=== PATIENT | female | born 1985 | race Caucasian/White ===

== ENCOUNTER 2017-02-27 16:28 | Emergency (ER) | payer OTHER ==
[2017-02-27 16:42] VITALS: BP 137/82; PULSE 90; RESP 18; TEMP 98.2
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
== END 2017-02-27 18:34 | disposition home or self-care (01) ==
LOC: EC 16:28
DX: S00.12XA Contusion of left eyelid and periocular area, initial encounter (principal); S60.211A Contusion of right wrist, initial encounter; S60.212A Contusion of left wrist, initial encounter; S70.02XA Contusion of left hip, initial encounter; H11.32 Conjunctival hemorrhage, left eye; Z88.5 Allergy status to narcotic agent; Y04.0XXA Assault by unarmed brawl or fight, initial encounter
CPT/HCPCS: 70450; 70486; 72125; 99284

== ENCOUNTER → 2017-04-19 | Outpatient (CLI) | payer OTHER ==
--- NOTE | 2017-04-19 14:58 | XR ---
EXAMINATION TYPE: XR lumbosacral spine min 4V DATE OF EXAM: 04/19/2017 CLINICAL HISTORY: Chronic low back pain, history of DDD. TECHNIQUE: Frontal, lateral, and oblique images of the lumbar spine are obtained. COMPARISON: None FINDINGS: There are 5 lumbar type vertebral bodies identified. Spina bifida defect S1 level is seen The lumbar spine shows satisfactory alignment without evidence of acute fracture or dislocation. Vert ebral body heights and disk space heights are within normal limits. No significant spurring is presen t. The oblique images appear within normal limits. The overlying soft tissue appears unremarkable. IMPRESSION: Spina bifida defect S1 level otherwise unremarkable study.
== END | disposition home or self-care (01) ==
LOC: RADXRMAIN 14:38
PROVIDERS: ATTEND Family Medicine
DX: Q05.8 Sacral spina bifida without hydrocephalus (principal); M54.5 Low back pain; G89.29 Other chronic pain
CPT/HCPCS: 72110

== ENCOUNTER 2018-02-08 18:41 | Emergency (ER) | payer OTHER ==
[2018-02-08 19:09] VITALS: BP 123/81; PULSE 88; RESP 16; TEMP 98.2
[2018-02-08] MEDS ORDERED: ACETAMINOPHEN TAB 500 MG TAB PO STA (19:56)
[2018-02-08] MEDS ORDERED: DIPH,PERTUS(ACELL)TETVAC-LF 0.5 ML VIAL IM ONE (19:56)
[2018-02-08] MEDS ORDERED: LIDOCAINE 1% INJ 10MG/ML (20 ML MDV) SQ ONE (19:56)
[2018-02-08] MEDS ORDERED: AMOXIC-POT CLAV 875-125MG 1 EACH TAB PO STA (19:58)
--- NOTE | 2018-02-08 20:02 | ED ---
Wound/Laceration HPI - General Chief Complaint: Wound/Laceration Stated Complaint: Dog bite Time Seen by Provider: 02/08/18 19:41 Source: patient, RN notes reviewed Mode of arrival: ambulatory Limitations: no limitations - History of Present Illness Initial Comments: This is a 33-year-old female who presents to the emergency department with chief complaint of dog bite. Patient states that at 6:30 this evening she was playing with her dog. She states that it is an [place] bulldog. She states that while playing, the dog jumped up and accidentally bit her in the left armpit instead of latching onto the toy. She states that dog is currently up-to -date with all vaccinations. Denies any other injuries or trauma. States she is unsure if she is up-to-date with her tetanus vaccination. Denies fevers or chills, chest pain or shortness breath, abdominal pain, nausea or vomiting, numbness or tingling. - Related Data Previous Rx's Medication Instructions Recorded Amoxicillin/Potassium Clav 1 tab PO Q12HR #14 tab 02/08/18 [Augmentin 875-125 Tablet] Ibuprofen 600 mg PO Q6HR #20 tablet 02/08/18 Allergies Allergy/AdvReac Type Severity Reaction Status Date / Time codeine Allergy Rash/Hives Verified 02/08/18 19:23 Review of Systems ROS Statement: Those systems with pertinent positive or pertinent negative responses have been documented in the HPI. ROS Other: All systems not noted in ROS Statement are negative. Past Medical History Additional Past Medical History / Comment(s): anxiety History of Any Multi-Drug Resistant Organisms: None Reported Past Surgical History: Tubal Ligation Past Psychological History: Anxiety Smoking Status: Never smoker Past Alcohol Use History: Occasional Past Drug Use History: Marijuana General Exam - General Exam Comments Initial Comments: General: Awake and alert, well-developed; in no apparent distress. HEENT: Head atraumatic, normocephalic. Pupils are equal, round and reactive to light. Extraocular movements intact. Oropharynx moist without erythema or exudate. Neck: Supple. Normal ROM. Cardiovascular: Regular rate and rhythm. No murmurs, rubs or gallops. Chest symmetrical. Respiratory: Lungs clear to auscultation bilaterally. No wheezes, rales or rhonchi. Normal respiratory effort with no use of accessory muscles. Musculoskeletal: Normal ROM, no tenderness bilateral upper and lower extremities. Ambulating normally. Skin: Approximately 1 cm x 1 cm superficial laceration with poorly approximated edges to the left lateral axilla. Bleeding is controlled. Neurological: Alert and oriented x3. CN II-XII grossly intact. Speech is fluent and answers are appropriate. No focal neuro deficits. Psychiatric: Normal mood and affect. No overt signs of depression or anxiety noted. Limitations: no limitations Course Vital Signs 02/08/18 19:06 Temperature 98.2 F Pulse Rate 88 Respiratory 16 Rate Blood Pressure 123/81 O2 Sat by Pulse 100 Oximetry Procedures - Laceration Laceration #1 Consent Obtained: verbal consent Indication: laceration Site: upper extremity (left axilla) Size (cm): 1 Description: linear Depth: simple, single layer Anesthetic Used: lidocaine 1% Anesthesia Technique: local infiltration Amount (mls): 3 Pre-repair: wound explored, irrigated extensively Type of Sutures: nylon Size of Sutures: 4-0 Number of Sutures: 1 Technique: simple, interrupted Patient Tolerated Procedure: well, no complications Medical Decision Making - Medical Decision Making This is a 33-year-old female who presents to the emergency department with chief complaint of dog bite. Patient was accidentally bit by her dog in the left axilla. Dog is up-to-date with all vaccinations. Patient was given booster for tetanus here in the emergency department. She was given first dose of Augmentin. She sustained an approximately 1 cm x 1 cm laceration with poorly approximated edges to the left lateral axilla. No other injuries or trauma. Wound was thoroughly cleansed, irrigated and one loose suture was placed. Patient tolerated well without complication. Recommended removal of suture in 10-14 days. Patient will be started on a course of Augmentin. She will be provided with a prescription for Motrin. Return parameters were discussed. Patient's vital signs are stable and she is in no acute distress. She will be discharged home at this time. All questions were answered. - Radiology Data Radiology results: report reviewed, image reviewed X-ray left shoulder impression: No foreign body seen. Disposition Clinical Impression: Dog bite Disposition: HOME SELF-CARE Condition: Good Instructions: Animal Bite (ED) Additional Instructions: Please take medications as prescribed. Please follow up with primary care provider within 1-2 days. Return to emergency department if symptoms should worsen or any concerns arise. Prescriptions: Amoxicillin/Potassium Clav [Augmentin 875-125 Tablet] 1 tab PO Q12HR #14 tab Ibuprofen 600 mg PO Q6HR #20 tablet Is patient prescribed a controlled substance at d/c from ED?: No Referrals: Dayana Rider MD [Primary Care Provider] - 1-2 days Time of Disposition: 20:33
--- NOTE | 2018-02-08 20:22 | XR ---
EXAMINATION TYPE: XR shoulder limited LT DATE OF EXAM: 02/08/2018 COMPARISON: NONE HISTORY: Dog bite. Possible foreign body. TECHNIQUE: 2 views FINDINGS: I see no fracture nor dislocation. There is a trimeter shaped density over the lower axilla that apparently is the clothing. The shoulder joint appears intact. IMPRESSION: No foreign body seen.
== END 2018-02-08 20:46 | disposition home or self-care (01) ==
LOC: EC 18:41
DX: S41.112A Laceration without foreign body of left upper arm, initial encounter (principal); Z23 Encounter for immunization; Z88.5 Allergy status to narcotic agent; W54.0XXA Bitten by dog, initial encounter; Y93.89 Activity, other specified
CPT/HCPCS: 73020; 90715; 99283; 12001; 90471; J2001

== ENCOUNTER 2019-10-27 16:46 | Emergency (ER) | payer OTHER ==
[2019-10-27 16:52] VITALS: BP 118/76; PULSE 89; RESP 18; TEMP 98
[2019-10-27] MEDS ORDERED: LIDOCAINE 1% INJ 10MG/ML (20 ML MDV) SQ ONE (17:14)
--- NOTE | 2019-10-27 17:43 | ED ---
Skin/Abscess/FB HPI - General Chief complaint: Skin/Abscess/Foreign Body Stated complaint: Abscess Time Seen by Provider: 10/27/19 16:55 Source: patient Mode of arrival: ambulatory Limitations: no limitations - History of Present Illness Initial comments: Patient is a 34-year-old female presenting to emergency Department with complaints of an abscess on her right inner thigh 3 days. Patient states she's had these before but this one is becoming painful and red and she is concerned is getting infected. Patient denies any fever, chills, nausea, vomiting. She has no other complaints at this time. Upon arrival to the ER her vitals are stable, afebrile. - Related Data Previous Rx's Medication Instructions Recorded Amoxicillin/Potassium Clav 1 tab PO Q12HR #14 tab 02/08/18 [Augmentin 875-125 Tablet] Ibuprofen 600 mg PO Q6HR #20 tablet 02/08/18 Cephalexin [Keflex] 500 mg PO Q6HR 5 Days #20 cap 10/27/19 Allergies Allergy/AdvReac Type Severity Reaction Status Date / Time codeine Allergy Rash/Hives Verified 10/27/19 16:52 Review of Systems ROS Statement: Those systems with pertinent positive or pertinent negative responses have been documented in the HPI. ROS Other: All systems not noted in ROS Statement are negative. Past Medical History Past Medical History: No Reported History Additional Past Medical History / Comment(s): anxiety History of Any Multi-Drug Resistant Organisms: None Reported Past Surgical History: Tubal Ligation Past Psychological History: Anxiety Smoking Status: Never smoker Past Alcohol Use History: Occasional Past Drug Use History: Marijuana General Exam - General Exam Comments Initial Comments: GENERAL: Well-appearing, well-nourished and in no acute distress. HEAD: Atraumatic, normocephalic. EYES: Pupils equal round and reactive to light, extraocular movements intact, sclera anicteric, conjunctiva are normal. ENT: TMs normal, nares patent, oropharynx clear without exudates. Moist mucous membranes. NECK: Normal range of motion, supple without lymphadenopathy or JVD. LUNGS: Breath sounds clear to auscultation bilaterally and equal. No wheezes rales or rhonchi. HEART: Regular rate and rhythm without murmurs, rubs or gallops. ABDOMEN: Soft, nontender, normoactive bowel sounds. No guarding, no rebound. No masses appreciated. : Deferred EXTREMITIES: Normal range of motion, no pitting or edema. No clubbing or cyanosis. NEUROLOGICAL: Normal speech, normal gait. PSYCH: Normal mood, normal affect. SKIN: Warm, Dry, normal turgor. Patient has a small 2cm abscess to the right inner thigh with some surrounding erythema and pain with palpation. 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: Identity, Site, Procedure, Consent Site: right upper thigh Site Marked: Yes Site Verified With Patient/Guardian: Yes Final Confirmation: Procedure, Site, Confirmed w/Provider - Incision & Drainage Consent Obtained: verbal consent, written consent Indication: Abscess Site: lower extremity (Right inner, upper thigh) Size (cm): 2 Anesthetic Used: lidocaine 1% Amount (mLs): 2 I&D Cleaning Method: Alcohol Wipe Sterile Field Used?: Yes Scalpel Used: #11 Needle Aspiration Performed?: No Irrigation Performed?: Yes I&D Drainage Obtained: Pus, Blood Culture Obtained?: No Patient Tolerated Procedure: well Medical Decision Making - Medical Decision Making Patient is a 34-year-old female presenting with a small abscess of the right inner thigh 3 days. No fever or chills. I&D procedure was used to drain the abscess. Patient tolerated procedure well. Patient will be started on Keflex. She is in agreement with this plan of care. She is stable for discharge. Return parameters were discussed with the patient she verbalized understanding. Disposition Clinical Impression: Abscess of right leg, Cellulitis Disposition: HOME SELF-CARE Condition: Stable Instructions (If sedation given, give patient instructions): Abscess Incision and Drainage (ED) Additional Instructions: Please return to the Emergency Department if symptoms worsen or any other concerns. Keep area clean and dry. Apply warm compresses to the area. Take antibiotics as prescribed. Prescriptions: Cephalexin [Keflex] 500 mg PO Q6HR 5 Days #20 cap Is patient prescribed a controlled substance at d/c from ED?: No Referrals: None,Stated [Primary Care Provider] - 1-2 days
== END 2019-10-27 17:52 | disposition home or self-care (01) ==
LOC: EC 16:46
DX: L03.115 Cellulitis of right lower limb (principal); L02.415 Cutaneous abscess of right lower limb; Z88.5 Allergy status to narcotic agent
CPT/HCPCS: 10060; 99283; J2001

== ENCOUNTER 2020-04-12 12:45 | Emergency (ER) | payer OTHER ==
[2020-04-12 13:06] VITALS: TEMP 98.5
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
--- NOTE | 2020-04-12 13:58 | XR ---
EXAMINATION TYPE: XR ankle complete LT DATE OF EXAM: 04/12/2020 COMPARISON: NONE HISTORY: Pain FINDINGS: Three views of the ankle demonstrate the ankle mortise to be intact and symmetric. The joint spaces are preserved. The osseous structures are intact. Calcaneal spur noted. IMPRESSION: 1. No definite acute fracture or dislocation, if symptoms persist follow-up study in 7 to 10 days wou ld be suggested.
--- NOTE | 2020-04-12 13:59 | XR ---
EXAMINATION TYPE: XR wrist complete RT DATE OF EXAM: 04/12/2020 COMPARISON: NONE HISTORY: Pain TECHNIQUE: Four views submitted. FINDINGS: The osseous structures are intact. The joint spaces are preserved and there is no acute fracture or dislocation. IMPRESSION: 1. No definite acute fracture or dislocation if symptoms persist, follow-up study in 7 to 10 days wo uld be suggested
--- NOTE | 2020-04-12 14:12 | XR ---
EXAMINATION TYPE: XR foot complete LT DATE OF EXAM: 04/12/2020 CLINICAL HISTORY: Fall TECHNIQUE: Frontal, lateral, and oblique images of the left foot are obtained. COMPARISON: None FINDINGS: There is no acute fracture/dislocation evident in the left foot. The joint spaces appear within normal limits. The overlying soft tissue appears unremarkable. Normal osseous mineralization. IMPRESSION: There is no acute fracture or dislocation in the left foot.
[2020-04-12 14:54] VITALS: BP 127/91; PULSE 54; RESP 16
[2020-04-12] MEDS ORDERED: IBUPROFEN 600 MG TAB PO STA (14:54)
== END 2020-04-12 15:00 | disposition home or self-care (01) ==
LOC: EC 12:45
DX: S63.501A Unspecified sprain of right wrist, initial encounter (principal); S93.402A Sprain of unspecified ligament of left ankle, initial encounter; Z88.5 Allergy status to narcotic agent; W01.0XXA Fall on same level from slipping, tripping and stumbling without subsequent striking against object, initial encounter; Y92.009 Unspecified place in unspecified non-institutional (private) residence as the place of occurrence of the external cause
CPT/HCPCS: 99284

== ENCOUNTER 2021-02-27 12:42 | Emergency (ER) | payer OTHER ==
[2021-02-27] MEDS ORDERED: ONDANSETRON 4 MG/2 ML VIAL IVP STA (12:49)
[2021-02-27] MEDS ORDERED: SODIUM CHLORIDE 0.9% 1,000 ML IV STA (12:49)
[2021-02-27] MEDS ORDERED: KETOROLAC 15 MG/ML 1 ML VIAL IVP STA (12:50)
[2021-02-27 12:53] VITALS: RESP 18; TEMP 97.7
[2021-02-27 13:41] LABS: ALT 11 U/L (4-34); AST 30 U/L (14-36); African American GFR (CKD) >90 (>60 ml/min/1.73 sqM); Albumin 4.1 g/dL (3.5-5.0); Alkaline Phosphatase 89 U/L (38-126); Amylase 60 U/L (30-110); Anion Gap 10 mmol/L; Blood Urea Nitrogen 10 mg/dL (7-17); Calcium 9.3 mg/dL (8.4-10.2); Carbon Dioxide 21 mmol/L (22-30); Chloride 107 mmol/L (98-107); Glucose 124 mg/dL (74-99); Lipase 18 U/L (23-300); Non-African American GFR(CKD) >90 (>60 ml/min/1.73 sqM); Sodium 138 mmol/L (137-145); Total Bilirubin 0.6 mg/dL (0.2-1.3); Total Protein 7.2 g/dL (6.3-8.2)
[2021-02-27 13:47] LABS: Potassium 4.8 mmol/L (3.5-5.1)
--- NOTE | 2021-02-27 13:55 | XR ---
EXAMINATION TYPE: XR KUB DATE OF EXAM: 02/27/2021 1:51 PM CLINICAL HISTORY: Abdominal pain with nausea and vomiting TECHNIQUE: Two Upright KUB images of the abdomen are obtained. COMPARISON: None. FINDINGS: Gas is seen in nondistended stomach. Scattered gas is seen in non-distended small and large bowel loops. There is no visceromegaly, pneumoperitoneum, or abnormal calcification appreciated. The lung bases are clear and the osseous structures are intact. IMPRESSION: Overall nonobstructive bowel gas pattern.
[2021-02-27 14:31] VITALS: BP 114/68; PULSE 63
--- NOTE | 2021-02-27 15:20 | CT ---
EXAMINATION TYPE: CT abdomen pelvis wo con DATE OF EXAM: 02/27/2021 HISTORY: RLQ pain, nausea, vomiting CT DLP: 1565 mGycm. Automated Exposure Control for Dose Reduction was Utilized. TECHNIQUE: CT scan of the abdomen and pelvis is performed without oral or IV contrast. COMPARISON: Abdominal x-ray earlier today FINDINGS: Within the limitations of a non-contrast study, the following observations are made. LUNG BASES: No significant abnormality is appreciated. LIVER/GB: No significant abnormality is appreciated. PANCREAS: No significant abnormality is seen. SPLEEN: No significant abnormality is seen. ADRENALS: No significant abnormality is seen. KIDNEYS: No renal calculus or hydronephrosis is seen bilaterally. BOWEL: Small to moderate size hiatal hernia is present. Suboptimal evaluation of bowel without enteri c contrast. No suspicious small or large bowel dilatation. Normal appendix from the medial aspect of the cecum and right lower quadrant coronal image 45. GENITAL ORGANS: Anteverted uterus. Ovaries symmetric and within normal limits of size axial image 108 . LYMPH NODES: No greater than 1cm abdominal or pelvic lymph nodes are appreciated. OSSEOUS STRUCTURES: No significant abnormality is seen. OTHER: No significant additional abnormality is seen. IMPRESSION: No renal stones or hydronephrosis is seen bilaterally. No CT evidence for acute appendici tis. No bowel obstruction. No suspicious acute findings identified.
--- NOTE | 2021-02-27 15:25 | ED ---
Abdominal Pain HPI - General Source: patient, EMS, RN notes reviewed Mode of arrival: EMS Limitations: no limitations <Ghulam Cota - Last Filed: 02/27/21 15:22> <Rich Rojas - Last Filed: 02/27/21 15:43> - General Chief Complaint: Abdominal Pain Stated Complaint: abd pain Time Seen by Provider: 02/27/21 12:45 - History of Present Illness Initial Comments: Patient is a 36-year-old female that presents to emergency department via EMS complaining of abdominal pain since this morning. She notes that the pain is mostly in her right lower quadrant. She notes that she has had some nausea and vomiting. She notes that she is on her menstrual cycle. She notes that she still has her gallbladder, appendix. She did appear to be in moderate amounts of discomfort while sitting in bed during exam and interview. She notes he did try to take Motrin prior to arrival. She'll that her pain was approximately an 8-9 out of 10 with no relief. She denied any chest pain shortness breath headache diarrhea constipation fever fatigue chills. (Ghulam Cota) - Related Data Home Medications Medication Instructions Recorded Confirmed No Known Home Medications 02/27/21 02/27/21 Allergies Allergy/AdvReac Type Severity Reaction Status Date / Time codeine Allergy Swelling Verified 02/27/21 15:15 Review of Systems ROS Other: All systems not noted in ROS Statement are negative. <Ghulam Cota - Last Filed: 02/27/21 15:22> ROS Other: All systems not noted in ROS Statement are negative. <Rich Rojas - Last Filed: 02/27/21 15:43> ROS Statement: Those systems with pertinent positive or pertinent negative responses have been documented in the HPI. Past Medical History Past Medical History: No Reported History Additional Past Medical History / Comment(s): anxiety History of Any Multi-Drug Resistant Organisms: None Reported Past Surgical History: Tubal Ligation Past Psychological History: Anxiety Smoking Status: Never smoker Past Alcohol Use History: Occasional Past Drug Use History: Marijuana <Ghulam Cota - Last Filed: 02/27/21 15:22> General Exam Limitations: no limitations General appearance: alert, in no apparent distress, obese Head exam: Present: atraumatic, normocephalic, normal inspection Eye exam: Present: normal appearance, PERRL, EOMI. Absent: scleral icterus, conjunctival injection, periorbital swelling Neck exam: Present: normal inspection Respiratory exam: Present: normal lung sounds bilaterally. Absent: respiratory distress, wheezes, rales, rhonchi, stridor Cardiovascular Exam: Present: regular rate, normal rhythm, normal heart sounds. Absent: systolic murmur, diastolic murmur, rubs, gallop, clicks GI/Abdominal exam: Present: soft, tenderness (Minimal in the lower abdomen bilaterally), normal bowel sounds. Absent: distended, guarding, rebound, rigid Extremities exam: Present: normal inspection, full ROM, normal capillary refill. Absent: tenderness, pedal edema, joint swelling, calf tenderness Neurological exam: Present: alert, oriented X3 Psychiatric exam: Present: normal affect, normal mood Skin exam: Present: warm, dry, intact, normal color. Absent: rash <Ghulam Cota - Last Filed: 02/27/21 15:22> Course Vital Signs 02/27/21 02/27/21 12:48 14:30 Temperature 97.7 F Pulse Rate 55 L 63 Respiratory 18 18 Rate Blood Pressure 145/93 114/68 O2 Sat by Pulse 100 100 Oximetry Medical Decision Making - Lab Data Result diagrams: 02/27/21 12:57 - Radiology Data Radiology results: report reviewed, image reviewed <Ghulam Cota - Last Filed: 02/27/21 15:22> - Lab Data Result diagrams: 02/27/21 12:57 <Rich Rojas - Last Filed: 02/27/21 15:43> - Medical Decision Making 36-year-old female complaining of abdominal pain starting this morning. Labs, KUB, 1 L normal saline, 15 mg of Toradol, 4 mg of Zofran ordered. Imaging negative for any acute process. (Ghulam Cota) 36-year-old female presenting to the emergency department with a chief complaint of abdominal pain. Personally evaluated the patient after she was signed off to me by CARLEE Bird. CBC is unremarkable. Mild elevation in lactic acid 2.1. Patient not able to give a urine sample. CT of abdomen and pelvis was obtained prior to signing out the patient to me. It revealed no acute findings. CBC was hemolyzed but the patient states he feels much better and would like to go home at this moment. She does not want to wait for laboratory results. I advised the possibility of abnormal results and that she would have to return if the pain continues. Patient is fully understandable. She will like to also follow with a primary care physician. Return parameters were thoroughly discussed patient is understanding and agreeable. Case discussed with Dr. Santamaria. (Rich Rojas) - Lab Data Lab Results 02/27/21 02/27/21 Range/Units 12:57 12:57 Sodium 138 (137-145) mmol/L Potassium 4.8 (3.5-5.1) mmol/L Chloride 107 (98-107) mmol/L Carbon Dioxide 21 L (22-30) mmol/L Anion Gap 10 mmol/L BUN 10 (7-17) mg/dL Creatinine 0.64 (0.52-1.04) mg/dL Est GFR (CKD-EPI)AfAm >90 (>60 ml/min/1.73 sqM) Est GFR (CKD-EPI)NonAf >90 (>60 ml/min/1.73 sqM) Glucose 124 H (74-99) mg/dL Plasma Lactic Acid Casimiro 2.1 H* (0.7-2.0) mmol/L Calcium 9.3 (8.4-10.2) mg/dL Total Bilirubin 0.6 (0.2-1.3) mg/dL AST 30 (14-36) U/L ALT 11 (4-34) U/L Alkaline Phosphatase 89 (38-126) U/L Total Protein 7.2 (6.3-8.2) g/dL Albumin 4.1 (3.5-5.0) g/dL Amylase 60 (30-110) U/L Lipase 18 L (23-300) U/L - Radiology Data KUB: Overall nonobstructive bowel gas pattern CT of the abdomen and pelvis: No renal stones or hydronephrosis is seen bilaterally. No CT evidence for appendicitis. No bowel discharge. No suspicious acute findings identified. (Ghulam Cota) Disposition <Ghulam Cota - Last Filed: 02/27/21 15:22> Is patient prescribed a controlled substance at d/c from ED?: No Time of Disposition: 15:41 <Rich Rojas - Last Filed: 02/27/21 15:43> Clinical Impression: Abdominal pain Disposition: HOME SELF-CARE Condition: Stable Instructions (If sedation given, give patient instructions): Abdominal Pain (ED) Additional Instructions: Please return to the Emergency Department if symptoms worsen or any other concerns. Referrals: None,Stated [Primary Care Provider] - 1-2 days
== END 2021-02-27 16:21 | disposition home or self-care (01) ==
LOC: EC 12:42
DX: R10.31 Right lower quadrant pain (principal); F41.9 Anxiety disorder, unspecified; F12.90 Cannabis use, unspecified, uncomplicated; Z88.5 Allergy status to narcotic agent; Z98.51 Tubal ligation status
CPT/HCPCS: 99284; 96374; 96375; 96361 ×3; 80053; 82150; 83605; 83690; 74018; 74176; J2405; J1885

== ENCOUNTER 2021-03-04 12:46 | Emergency (ER) | payer OTHER ==
[2021-03-04] MEDS ORDERED: METOCLOPRAMIDE 5 MG/ML 2 ML VIAL IVP STA (13:05)
[2021-03-04] MEDS ORDERED: SODIUM CHLORIDE 0.9% 1,000 ML IV STA (13:05)
[2021-03-04] MEDS ORDERED: MORPHINE SULFATE 4 MG/ML SYRINGE IV STA (13:05)
[2021-03-04] MEDS ORDERED: diphenhydrAMINE 50 MG/ML 1 ML VIAL IVP STA (13:05)
[2021-03-04 13:36] LABS: Basophils % (A) 0 %; Eosinophils # (A) 0.1 k/uL (0-0.7); Eosinophils % (A) 1 %; HCT 43.1 % (34.0-46.0); HGB 14.5 gm/dL (11.4-16.0); Lymphocytes # (A) 1.5 k/uL (1.0-4.8); Lymphocytes % (A) 11 %; MCH 31.8 pg (25.0-35.0); MCHC 33.6 g/dL (31.0-37.0); MCV 94.8 fL (80.0-100.0); Mean Platelet Volume 7.8; Monocytes # (A) 0.3 k/uL (0-1.0); Monocytes % (A) 2 %; Neutrophils # (A) 11.3 k/uL (1.3-7.7); Neutrophils % (A) 85 %; Platelet Count 320 k/uL (150-450); RBC 4.55 m/uL (3.80-5.40); RDW 12.8 % (11.5-15.5); WBC 13.4 k/uL (3.8-10.6)
[2021-03-04 13:47] LABS: ALT 14 U/L (4-34); AST 22 U/L (14-36); African American GFR (CKD) >90 (>60 ml/min/1.73 sqM); Albumin 3.9 g/dL (3.5-5.0); Alkaline Phosphatase 104 U/L (38-126); Amylase 47 U/L (30-110); Anion Gap 7 mmol/L; Blood Urea Nitrogen 9 mg/dL (7-17); Calcium 9.4 mg/dL (8.4-10.2); Carbon Dioxide 23 mmol/L (22-30); Chloride 108 mmol/L (98-107); Glucose 129 mg/dL (74-99); Lipase 10 U/L (23-300); Non-African American GFR(CKD) >90 (>60 ml/min/1.73 sqM); Potassium 3.7 mmol/L (3.5-5.1); Sodium 138 mmol/L (137-145); Total Bilirubin 0.3 mg/dL (0.2-1.3); Total Protein 6.9 g/dL (6.3-8.2)
[2021-03-04 13:48] LABS: Partial Thromboplastin Time 24.6 sec (22.0-30.0); Prothrombin Time 10.5 sec (9.0-12.0)
--- NOTE | 2021-03-04 14:01 | ED ---
Abdominal Pain HPI - General Chief Complaint: Abdominal Pain Stated Complaint: Abd Pain Time Seen by Provider: 03/04/21 12:54 Source: patient, EMS Mode of arrival: EMS Limitations: no limitations - History of Present Illness Initial Comments: Patient is a 36-year-old female presenting to the emergency department via EMS with complaints of upper abdominal pain that started suddenly this morning. She describes it as very sharp, 10 out of 10 pain and causing nausea and vomiting. She states that she had a similar pain last week on , she was evaluated at the ER and her CT did not show any acute process. Patient admits to history of tubal ligation, no other abdominal surgeries. She denies any recent fevers or chills, no chest pain or shortness of breath. She is being secondary to ligation. She has no further complaints at this time. Upon arrival to the ER her vitals are stable. She did receive 4 mg of Zofran EMS prior to arrival. - Related Data Home Medications Medication Instructions Recorded Confirmed Omeprazole 20 mg PO DAILY PRN 03/04/21 03/04/21 Previous Rx's Medication Instructions Recorded Omeprazole 40 mg PO DAILY #30 cap 03/04/21 Allergies Allergy/AdvReac Type Severity Reaction Status Date / Time codeine Allergy Swelling Verified 03/04/21 16:03 Review of Systems ROS Statement: Those systems with pertinent positive or pertinent negative responses have been documented in the HPI. ROS Other: All systems not noted in ROS Statement are negative. Past Medical History Past Medical History: No Reported History Additional Past Medical History / Comment(s): anxiety History of Any Multi-Drug Resistant Organisms: None Reported Past Surgical History: Tubal Ligation Past Psychological History: Anxiety Smoking Status: Never smoker Past Alcohol Use History: Occasional Past Drug Use History: Marijuana General Exam - General Exam Comments Initial Comments: GENERAL: Patient is well-developed and well-nourished. Patient is nontoxic and in moderate distress, nephrotic. HEAD: Atraumatic, normocephalic. EYES: Pupils equal round and reactive to light, extraocular movements intact, sclera anicteric, conjunctiva are normal. Eyelids were unremarkable. ENT: Nares patent, oropharynx clear without exudates. Moist mucous membranes. NECK: Normal range of motion, supple without lymphadenopathy or JVD. LUNGS: Unlabored respirations. Breath sounds clear to auscultation bilaterally and equal. No wheezes rales or rhonchi. HEART: Regular rate and rhythm without murmurs, rubs or gallops. ABDOMEN: Soft, tender to palpation epigastric and right upper quadrant, normoactive bowel sounds. Positive guarding. No masses appreciated. : Deferred MUSCULOSKELETAL: Normal extremities with adequate strength and normal range of motion, no pitting or edema. No clubbing or cyanosis. NEUROLOGICAL: Patient is alert and oriented x 3. Motor and sensory are also intact. Cranial nerves II through XII grossly intact. Symmetrical smile. Normal speech, normal gait. PSYCH: Normal mood, normal affect. SKIN: Warm, Dry, normal turgor, no rashes or lesions noted. Limitations: no limitations Course Vital Signs 03/04/21 03/04/21 12:49 16:00 Temperature 98.9 F Pulse Rate 66 55 L Respiratory 20 18 Rate Blood Pressure 130/81 165/83 O2 Sat by Pulse 100 100 Oximetry Medical Decision Making - Medical Decision Making She is a 36-year-old female here via EMS, with severe epigastric right upper quadrant pain that started this morning. She was seen in the ER for similar complaint, has normal computed tomography scan, she felt better and went home. Her vitals are stable today. Patient is in severe pain, diaphoretic. No chest pain or shortness of breath. Labs today show a small white count 13.4, most likely reactive, lactic acid is normal at 1.5, troponin is negative, urine shows no evidence of infection, hCG is not detected. Ultrasound of the gallbladder showed no acute process at this time. Patient was given pain control, Reglan, GI cocktail, does report some improvement in her symptoms. She states she used to have an ulcer, was taking omeprazole until 1-2 weeks ago and stopped taking it. This pain is most likely related to possible ulcer. I recommended getting back on omeprazole, will give her a prescription for 40 mg daily. I will also give her a GI referral. She is in agreement with this plan of care and is stable for discharge. Return parameters were discussed with her and she verbalized understanding. Case discussed with Dr. Dey. - Lab Data Result diagrams: 03/04/21 13:22 03/04/21 13:22 Lab Results 03/04/21 03/04/21 03/04/21 Range/Units 13:22 13:22 13:22 WBC 13.4 H (3.8-10.6) k/uL RBC 4.55 (3.80-5.40) m/uL Hgb 14.5 (11.4-16.0) gm/dL Hct 43.1 (34.0-46.0) % MCV 94.8 (80.0-100.0) fL MCH 31.8 (25.0-35.0) pg MCHC 33.6 (31.0-37.0) g/dL RDW 12.8 (11.5-15.5) % Plt Count 320 (150-450) k/uL MPV 7.8 Neutrophils % 85 % Lymphocytes % 11 % Monocytes % 2 % Eosinophils % 1 % Basophils % 0 % Neutrophils # 11.3 H (1.3-7.7) k/uL Lymphocytes # 1.5 (1.0-4.8) k/uL Monocytes # 0.3 (0-1.0) k/uL Eosinophils # 0.1 (0-0.7) k/uL Basophils # 0.0 (0-0.2) k/uL PT 10.5 (9.0-12.0) sec INR 1.0 (<1.2) APTT 24.6 (22.0-30.0) sec Sodium (137-145) mmol/L Potassium (3.5-5.1) mmol/L Chloride (98-107) mmol/L Carbon Dioxide (22-30) mmol/L Anion Gap mmol/L BUN (7-17) mg/dL Creatinine (0.52-1.04) mg/dL Est GFR (CKD-EPI)AfAm (>60 ml/min/1.73 sqM) Est GFR (CKD-EPI)NonAf (>60 ml/min/1.73 sqM) Glucose (74-99) mg/dL Plasma Lactic Acid Casimiro (0.7-2.0) mmol/L Calcium (8.4-10.2) mg/dL Total Bilirubin (0.2-1.3) mg/dL AST (14-36) U/L ALT (4-34) U/L Alkaline Phosphatase (38-126) U/L Troponin I (0.000-0.034) ng/mL Total Protein (6.3-8.2) g/dL Albumin (3.5-5.0) g/dL Amylase (30-110) U/L Lipase (23-300) U/L Urine Color Light Yellow Urine Appearance Cloudy H (Clear) Urine pH 7.0 (5.0-8.0) Ur Specific [place] 1.017 (1.001-1.035) Urine Protein Negative (Negative) Urine Glucose (UA) Negative (Negative) Urine Ketones 1+ H (Negative) Urine Blood Negative (Negative) Urine Nitrite Negative (Negative) Urine Bilirubin Negative (Negative) Urine Urobilinogen <2.0 (<2.0) mg/dL Ur Leukocyte Esterase Negative (Negative) Urine RBC 2 (0-5) /hpf Urine WBC 2 (0-5) /hpf Ur Squamous Epith Cells 8 H (0-4) /hpf Urine Mucus Rare H (None) /hpf Urine HCG, Qual (Not Detectd) 03/04/21 03/04/21 03/04/21 Range/Units 13:22 13:22 13:22 WBC (3.8-10.6) k/uL RBC (3.80-5.40) m/uL Hgb (11.4-16.0) gm/dL Hct (34.0-46.0) % MCV (80.0-100.0) fL MCH (25.0-35.0) pg MCHC (31.0-37.0) g/dL RDW (11.5-15.5) % Plt Count (150-450) k/uL MPV Neutrophils % % Lymphocytes % % Monocytes % % Eosinophils % % Basophils % % Neutrophils # (1.3-7.7) k/uL Lymphocytes # (1.0-4.8) k/uL Monocytes # (0-1.0) k/uL Eosinophils # (0-0.7) k/uL Basophils # (0-0.2) k/uL PT (9.0-12.0) sec INR (<1.2) APTT (22.0-30.0) sec Sodium 138 (137-145) mmol/L Potassium 3.7 (3.5-5.1) mmol/L Chloride 108 H (98-107) mmol/L Carbon Dioxide 23 (22-30) mmol/L Anion Gap 7 mmol/L BUN 9 (7-17) mg/dL Creatinine 0.61 (0.52-1.04) mg/dL Est GFR (CKD-EPI)AfAm >90 (>60 ml/min/1.73 sqM) Est GFR (CKD-EPI)NonAf >90 (>60 ml/min/1.73 sqM) Glucose 129 H (74-99) mg/dL Plasma Lactic Acid Casimiro (0.7-2.0) mmol/L Calcium 9.4 (8.4-10.2) mg/dL Total Bilirubin 0.3 (0.2-1.3) mg/dL AST 22 (14-36) U/L ALT 14 (4-34) U/L Alkaline Phosphatase 104 (38-126) U/L Troponin I <0.012 (0.000-0.034) ng/mL Total Protein 6.9 (6.3-8.2) g/dL Albumin 3.9 (3.5-5.0) g/dL Amylase 47 (30-110) U/L Lipase 10 L (23-300) U/L Urine Color Urine Appearance (Clear) Urine pH (5.0-8.0) Ur Specific [place] (1.001-1.035) Urine Protein (Negative) Urine Glucose (UA) (Negative) Urine Ketones (Negative) Urine Blood (Negative) Urine Nitrite (Negative) Urine Bilirubin (Negative) Urine Urobilinogen (<2.0) mg/dL Ur Leukocyte Esterase (Negative) Urine RBC (0-5) /hpf Urine WBC (0-5) /hpf Ur Squamous Epith Cells (0-4) /hpf Urine Mucus (None) /hpf Urine HCG, Qual Not Detected (Not Detectd) 03/04/21 Range/Units 13:32 WBC (3.8-10.6) k/uL RBC (3.80-5.40) m/uL Hgb (11.4-16.0) gm/dL Hct (34.0-46.0) % MCV (80.0-100.0) fL MCH (25.0-35.0) pg MCHC (31.0-37.0) g/dL RDW (11.5-15.5) % Plt Count (150-450) k/uL MPV Neutrophils % % Lymphocytes % % Monocytes % % Eosinophils % % Basophils % % Neutrophils # (1.3-7.7) k/uL Lymphocytes # (1.0-4.8) k/uL Monocytes # (0-1.0) k/uL Eosinophils # (0-0.7) k/uL Basophils # (0-0.2) k/uL PT (9.0-12.0) sec INR (<1.2) APTT (22.0-30.0) sec Sodium (137-145) mmol/L Potassium (3.5-5.1) mmol/L Chloride (98-107) mmol/L Carbon Dioxide (22-30) mmol/L Anion Gap mmol/L BUN (7-17) mg/dL Creatinine (0.52-1.04) mg/dL Est GFR (CKD-EPI)AfAm (>60 ml/min/1.73 sqM) Est GFR (CKD-EPI)NonAf (>60 ml/min/1.73 sqM) Glucose (74-99) mg/dL Plasma Lactic Acid Casimiro 1.5 (0.7-2.0) mmol/L Calcium (8.4-10.2) mg/dL Total Bilirubin (0.2-1.3) mg/dL AST (14-36) U/L ALT (4-34) U/L Alkaline Phosphatase (38-126) U/L Troponin I (0.000-0.034) ng/mL Total Protein (6.3-8.2) g/dL Albumin (3.5-5.0) g/dL Amylase (30-110) U/L Lipase (23-300) U/L Urine Color Urine Appearance (Clear) Urine pH (5.0-8.0) Ur Specific [place] (1.001-1.035) Urine Protein (Negative) Urine Glucose (UA) (Negative) Urine Ketones (Negative) Urine Blood (Negative) Urine Nitrite (Negative) Urine Bilirubin (Negative) Urine Urobilinogen (<2.0) mg/dL Ur Leukocyte Esterase (Negative) Urine RBC (0-5) /hpf Urine WBC (0-5) /hpf Ur Squamous Epith Cells (0-4) /hpf Urine Mucus (None) /hpf Urine HCG, Qual (Not Detectd) Disposition Clinical Impression: Epigastric abdominal pain Disposition: HOME SELF-CARE Condition: Stable Instructions (If sedation given, give patient instructions): Abdominal Pain (ED) Additional Instructions: Please return to the Emergency Department if symptoms worsen or any other concerns. Please limit spicy/fatty foods. Take omeprazole 40 mg daily. Please follow up with GI. Prescriptions: Omeprazole 40 mg PO DAILY #30 cap Is patient prescribed a controlled substance at d/c from ED?: No Referrals: None,Stated [Primary Care Provider] - 1-2 days Cindi Loyola MD [STAFF PHYSICIAN] - 1-2 days Time of Disposition: 16:48
--- NOTE | 2021-03-04 14:29 | US ---
EXAMINATION TYPE: US gallbladder DATE OF EXAM: 03/04/2021 COMPARISON: CT 5 days ago. CLINICAL HISTORY: epigastric abd pain. RUQ pain too with nausea and vomiting, chills and diarrhea x 6 days EXAM MEASUREMENTS: Liver Length: 15.0 cm Gallbladder Wall: 0.2 cm CBD: 0.3 cm Right Kidney: 9.4 x 6.7 x 3.6 cm Pancreas: wnl Liver: wnl Gallbladder: wnl Evidence for sonographic Zhong's sign: no CBD: wnl Right Kidney: No hydronephrosis or masses seen Slightly suboptimal due to body habitus. Visualized pancreas and liver within normal limits. Gallblad kenji seen without shadowing mobile gallstones. No biliary dilatation. No right-sided hydronephrosis. IMPRESSION: No shadowing mobile gallstones or ultrasound evidence for acute cholecystitis.
[2021-03-04 15:28] LABS: Appearance,Urine Cloudy (Clear); Bilirubin,Urine Negative (Negative); Blood,Urine Negative (Negative); Color,Urine Light Yellow; Glucose,Urine (UA) Negative (Negative); Ketones,Urine 1+ (Negative); Leukocyte Esterase,Urine Negative (Negative); Mucus,Urine Rare /hpf; Nitrite,Urine Negative (Negative); Protein,Urine Negative (Negative); RBC,Urine 2 /hpf (0-5); Specific Gravity,Urine 1.017 (1.001-1.035); Squamous Epithelial Cell,Urine 8 /hpf (0-4); Urobilinogen,Urine <2.0 mg/dL (<2.0); WBC,Urine 2 /hpf (0-5)
[2021-03-04] MEDS ORDERED: MAG HYDROX/AL HYDROX/SIMETH 30 ML, HYOSCYAMINE ELIXIR 10 ML, LIDOCAINE VISCOUS 2% 10 ML PO STA ×3 (15:32)
[2021-03-04] MEDS ORDERED: PANTOPRAZOLE 40 MG/10 ML VIAL IVP STA (15:32)
[2021-03-04 16:15] VITALS: RESP 18
[2021-03-04] MEDS ORDERED: MORPHINE SULFATE 2 MG/ML SYRINGE IVP ONE (16:44)
[2021-03-04 17:43] VITALS: BP 128/88; PULSE 62; TEMP 98.2
== END 2021-03-04 17:43 | disposition home or self-care (01) ==
LOC: EC 12:46
DX: R10.13 Epigastric pain (principal); F41.9 Anxiety disorder, unspecified; F12.90 Cannabis use, unspecified, uncomplicated; Z88.5 Allergy status to narcotic agent; Z98.51 Tubal ligation status
CPT/HCPCS: 99284; 96374; 96375 ×3; 96376; 96361; 36415; 80053; 82150; 83605; 83690; 84484; 85025; 85610; 85730; 81001; 81025; 76705; J2270 ×2; J1200; J2765; C9113

== ENCOUNTER 2023-07-23 20:24 | Emergency (ER) | payer OTHER ==
[2023-07-23 20:45] VITALS: TEMP 98.2
[2023-07-23] MEDS ORDERED: IBUPROFEN 800 MG TAB PO STA (20:49)
[2023-07-23] MEDS ORDERED: ACETAMINOPHEN TAB 500 MG TAB PO STA (20:49)
--- NOTE | 2023-07-23 20:55 | ED ---
Lower Extremity Injury HPI - General Chief Complaint: Extremity Injury, Lower Stated Complaint: left ankle injury Time Seen by Provider: 07/23/23 20:37 Source: patient Mode of arrival: wheelchair Limitations: no limitations - History of Present Illness Initial Comments: 38-year-old female presenting with chief complaint of left ankle pain. Patient had a fall from the first step of her porch and twisted her left ankle. She is complaining of 8 out of 10 pain. Pain is mainly located around the lateral malleolus. This injury occurred at about 8 PM. No analgesia prior to arrival. No numbness or tingling. No discoloration. - Related Data Home Medications Medication Instructions Recorded Confirmed Omeprazole 20 mg PO DAILY PRN 03/04/21 03/04/21 Previous Rx's Medication Instructions Recorded Omeprazole 40 mg PO DAILY #30 cap 03/04/21 Allergies Allergy/AdvReac Type Severity Reaction Status Date / Time codeine Allergy Swelling Verified 07/23/23 20:37 Review of Systems ROS Statement: Those systems with pertinent positive or pertinent negative responses have been documented in the HPI. ROS Other: All systems not noted in ROS Statement are negative. Past Medical History Past Medical History: No Reported History Additional Past Medical History / Comment(s): anxiety History of Any Multi-Drug Resistant Organisms: None Reported Past Surgical History: Tubal Ligation Additional Past Surgical History / Comment(s): Tubal (2013) Past Psychological History: Anxiety Smoking Status: Current every day smoker Past Alcohol Use History: Occasional Past Drug Use History: Marijuana General Exam Limitations: no limitations General appearance: alert, in no apparent distress Head exam: Present: atraumatic, normocephalic Eye exam: Present: normal appearance, EOMI Neck exam: Present: normal inspection Respiratory exam: Absent: respiratory distress Cardiovascular Exam: Present: regular rate Left Ankle exam: Present: tenderness, swelling. Absent: full ROM Neurovascular tendon exam: Present: no vascular compromise Neurological exam: Present: alert, oriented X3 Psychiatric exam: Present: normal affect, normal mood Skin exam: Present: warm, dry Course Vital Signs 07/23/23 07/23/23 20:32 22:18 Temperature 98.2 F Pulse Rate 80 67 Respiratory 18 16 Rate Blood Pressure 116/86 128/78 O2 Sat by Pulse 96 99 Oximetry Medical Decision Making - Medical Decision Making Was pt. sent in by a medical professional or institution (Dr., PA, FROG CATCHER, urgent care, hospital, or snf...) When possible be specific @ -No Did you speak to anyone other than the patient for history (EMS, parent, family, police, friend...)? What history was obtained from this source @ -No Did you review nursing and triage notes (agree or disagree)? Why? @ -I reviewed and agree with nursing and triage notes Were old charts reviewed (outside hosp., previous admission, EMS record, old EKG, old radiological studies, urgent care reports/EKG's, snf records)? Report findings @ -No old charts were reviewed Differential Diagnosis (chest pain, altered mental status, abdominal pain women, abdominal pain men, vaginal bleeding, weakness, fever, dyspnea, syncope, headache, dizziness, GI bleed, back pain, seizure, CVA, palpatations, mental health, musculoskeletal)? @ -Differential Musculoskeletal Muscular strain, contusion, ligament sprain, fracture, arthritis, septic arthritis, bursitis, cellulitis, muscle spasm, nerve compression, DVT, arterial occlusion, herpes zoster, electrolyte abnormality, tumor.... This is not meant to be in all inclusive list EKG interpreted by me (3pts min.). @ -As above X-rays interpreted by me (1pt min.). @ -Ankle x-ray shows no fracture or dislocation CT interpreted by me (1pt min.). @ -None done U/S interpreted by me (1pt. min.). @ -None done What testing was considered but not performed or refused? (CT, X-rays, U/S, labs)? Why? @ -None What meds were considered but not given or refused? Why? @ -None Did you discuss the management of the patient with other professionals (professionals i.e. CARLEE Roa, FROG CATCHER, lab, RT, psych nurse, social services assistant, pattern mechanic, teacher, evp chief exploration officer, nurse outreach case manager)? Give summary @ -No Was smoking cessation discussed for >3mins.? @ -No Was critical care preformed (if so, how long)? @ -No Were there social determinants of health that impacted care today? How? (Homelessness, low income, unemployed, alcoholism, drug addiction, transportation, low edu. Level, literacy, decrease access to med. care, [facility], rehab)? @ -No Was there de-escalation of care discussed even if they declined (Discuss DNR or withdrawal of care, Hospice)? DNR status @ -No What co-morbidities impacted this encounter? (DM, HTN, Smoking, COPD, CAD, Can cer, CVA, ARF, Chemo, Hep., AIDS, mental health diagnosis, sleep apnea, morbid obesity)? @ -None Was patient admitted / discharged? Hospital course, mention meds given and route, prescriptions, significant lab abnormalities, going to OR and other pertinent info. @ -38-year-old female presenting with chief complaint of left ankle injury. On physical exam she is neurovascularly intact, there is pain and swelling to the lateral malleolus. X-ray shows no fracture or dislocation. Patient is provided with ankle stirrup Aircast and crutches. Educated on supportive management. Follow-up with PCP. Report back to ER with any new or worsening symptoms. Discussed return parameters and answered all questions. Patient conveyed verbal understanding and agreed to the plan. I discussed this case in detail with my attending Dr. Dey Undiagnosed new problem with uncertain prognosis? @ -No Drug Therapy requiring intensive monitoring for toxicity (Heparin, Nitro, Insulin, Cardizem)? @ -No Were any procedures done? @ -No Diagnosis/symptom? @ -Ankle sprain Acute, or Chronic, or Acute on Chronic? @ -Acute Uncomplicated (without systemic symptoms) or Complicated (systemic symptoms)? @ -Uncomplicated Side effects of treatment? @ -No Exacerbation, Progression, or Severe Exacerbation? @ -No Poses a threat to life or bodily function? How? (Chest pain, [place], [place], pneumonia, PE, COPD, DKA, ARF, appy, cholecystitis, CVA, Diverticulitis, Homicidal, Suicidal, threat to staff... and all critical care pts) @ -No Disposition Clinical Impression: Ankle sprain Disposition: HOME SELF-CARE Condition: Good Instructions (If sedation given, give patient instructions): Ankle Sprain (ED) Additional Instructions: Follow-up with PCP. Report back to ER with any new or worsening symptoms. Is patient prescribed a controlled substance at d/c from ED?: No Referrals: None,Stated [REFERRING] - 1-2 days [facility] [[facility] - 1-2 days Time of Disposition: 22:03
--- NOTE | 2023-07-23 21:47 | XR ---
EXAMINATION TYPE: XR ankle complete LT DATE OF EXAM: 07/23/2023 COMPARISON: 04/12/2020 HISTORY: Fall, twisted ankle TECHNIQUE: 3 view left ankle FINDINGS: Ankle mortise is intact. Plantar calcaneal heel spur is present. No acute fracture or dislo cation is evident. Follow up exams can be performed 7-10 days of acute trauma for continued pain. IMPRESSION: 1. No acute osseous and amount to radiographically apparent
[2023-07-23 22:26] VITALS: BP 128/78; PULSE 67; RESP 16
== END 2023-07-23 22:19 | disposition home or self-care (01) ==
LOC: EC 20:24
DX: S93.402A Sprain of unspecified ligament of left ankle, initial encounter (principal); F12.90 Cannabis use, unspecified, uncomplicated; F17.200 Nicotine dependence, unspecified, uncomplicated; Z88.5 Allergy status to narcotic agent; Z86.59 Personal history of other mental and behavioral disorders; X50.1XXA Overexertion from prolonged static or awkward postures, initial encounter
CPT/HCPCS: 99283

== ENCOUNTER 2023-09-06 06:17 | Emergency (ER) | payer OTHER ==
--- NOTE | 2023-09-06 07:08 | ED ---
URI HPI - General Chief Complaint: Upper Respiratory Infection Stated Complaint: N/V/D congestion Time Seen by Provider: 09/06/23 06:46 Source: patient, RN notes reviewed Mode of arrival: ambulatory Limitations: no limitations - History of Present Illness Initial Comments: This is a 38-year-old female who presents to the emergency department for coughing, congestion, and a sore throat. Symptoms started 2 to 3 days ago. Also reports nausea, vomiting, and diarrhea. She has been able to get the coughing under control to some extent with [id number] medicine, however the nausea is still very bothersome. Denies any fever/chills. 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 Denies any history of asthma or other respiratory illnesses. She has not had any chest pain or shortness of breath. MD Complaint: cough, nasal congestion - Related Data Home Medications Medication Instructions Recorded Confirmed Omeprazole 20 mg PO DAILY PRN 03/04/21 03/04/21 Previous Rx's Medication Instructions Recorded Omeprazole 40 mg PO DAILY #30 cap 03/04/21 Benzonatate [Tessalon Perle] 200 mg PO TID PRN #20 capsule 09/06/23 Ondansetron Odt [Zofran Odt] 4 mg PO Q8HR PRN #20 tab 09/06/23 Allergies Allergy/AdvReac Type Severity Reaction Status Date / Time codeine Allergy Swelling Verified 09/06/23 06:45 Review of Systems ROS Statement: Those systems with pertinent positive or pertinent negative responses have been documented in the HPI. ROS Other: All systems not noted in ROS Statement are negative. Past Medical History Past Medical History: No Reported History Additional Past Medical History / Comment(s): anxiety History of Any Multi-Drug Resistant Organisms: None Reported Past Surgical History: Tubal Ligation Additional Past Surgical History / Comment(s): Tubal (2012) Past Psychological History: Anxiety Smoking Status: Never smoker Past Alcohol Use History: None Reported Past Drug Use History: None Reported General Exam Limitations: no limitations General appearance: alert, in no apparent distress Head exam: Present: atraumatic, normocephalic, normal inspection ENT exam: Present: normal oropharynx, mucous membranes moist Respiratory exam: Present: normal lung sounds bilaterally. Absent: respiratory distress, wheezes, rales, rhonchi, stridor Cardiovascular Exam: Present: regular rate, normal rhythm, normal heart sounds. Absent: systolic murmur, diastolic murmur, rubs, gallop, clicks Neurological exam: Present: alert, oriented X3, CN II-XII intact Psychiatric exam: Present: normal affect, normal mood Skin exam: Present: warm, dry, intact, normal color. Absent: rash Course Vital Signs 09/06/23 09/06/23 09/06/23 06:40 06:59 08:03 Temperature 97.7 F 98.3 F Pulse Rate 72 70 Respiratory 22 22 18 Rate Blood Pressure 139/98 134/96 O2 Sat by Pulse 98 99 Oximetry Medical Decision Making - Medical Decision Making This is a 38 year old female who presents to the emergency department for coughing and congestion. Was pt. sent in by a medical professional or institution? @ -No Did you speak to anyone other than the patient for history? @ -No Did you review nursing and triage notes? @ -Yes, and I agree, it is accurate with regards to the patient's symptoms. Were old charts reviewed? @ -No Differential Diagnosis? @ -Differential Cough: Influenza, Covid, RSV, croup, allergic rhinitis, GERD, pneumonia, bronchitis, COPD, viral pharyngitis, streptococcal pharyngitis, this is not meant to be an all-inclusive list. EKG interpreted by me (3pts min.)? @ -Not obtained X-rays interpreted by me (1pt min.)? @ -Chest x-ray obtained, my interpretation identifies no localized consolidations or infiltrates. CT interpreted by me (1pt min.)? @ -Not obtained U/S interpreted by me (1pt. min.)? @ -Not obtained What testing was considered but not performed? (CT, X-rays, U/S, labs)? Why? @ -None What meds were considered but not given? Why? @ -None Did you discuss the management of the patient with other professionals? @ -No Did you reconcile home meds? @ -No Was smoking cessation discussed for >3mins.? @ -No Was critical care preformed (if so, how long)? @ -No Were there social determinants of health that impacted care today? How? (Homelessness, low income, unemployed, alcoholism, drug addiction, transportation, low edu. Level, literacy, decrease access to med. care, nursing home, rehab)? @ -No Was there de-escalation of care discussed even if they declined? (Discuss DNR or withdrawal of care, Hospice)? @ -No What co-morbidities impacted this encounter? (DM, HTN, Smoking, COPD, CAD, Cancer, CVA, Hep., AIDS, mental health diagnosis, sleep apnea, morbid obesity)? @ -None Was patient admitted / discharged? @ -Discharged. Patient positive for COVID-19. Influenza and RSV testing negative. Chest x-ray demonstrates some peribronchial cuffing suggestive of bronchitis or asthma without any focal infiltrates. Zofran administered for nausea in the emergency department. Prescription for Zofran and Tessalon Perles provided with dosing instructions reviewed. Patient discharged home in stable condition. Undiagnosed new problem with uncertain prognosis? @ -None Drug Therapy requiring intensive monitoring for toxicity (Heparin, Nitro, Insulin, Cardizem)? @ -None Were any procedures done? @ -None Diagnosis/symptom? @ -COVID-19 Acute, or Chronic, or Acute on Chronic? @ -Acute Uncomplicated (without systemic symptoms) or Complicated (systemic symptoms)? @ -Uncomplicated Side effects of treatment? @ -None Exacerbation, Progression, or Severe Exacerbation] @ -Not applicable Poses a threat to life or bodily function? @ -No Return precautions reviewed in depth, the patient is instructed to return to the emergency department with any new, worsening, or concerning symptoms. Patient verbalized understanding. This case was discussed in detail with the attending ED physician, Dr. Raza. Presentation, findings, and treatment plan discussed in detail as well. - Lab Data Lab Results 09/06/23 Range/Units 06:54 Influenza Type A (PCR) Not Detected (Not Detectd) Influenza Type B (PCR) Not Detected (Not Detectd) RSV (PCR) Not Detected (Not Detectd) SARS-CoV-2 (PCR) Detected A (Not Detectd) - Radiology Data Radiology results: report reviewed, image reviewed Disposition Clinical Impression: COVID-19 Disposition: HOME SELF-CARE Instructions (If sedation given, give patient instructions): SARS-COV-2 (By injection), COVID-19 (Coronavirus Disease 2019) (ED) Additional Instructions: Return to the emergency department with any new, worsening, or concerning symptoms. You can take the Tessalon Perles up to 3 times daily as needed for the cough. You can take the Zofran up to every 8 hours as needed for nausea and vomiting. Follow up with your primary care provider in 1-2 days. Prescriptions: Benzonatate [Tessalon Perle] 200 mg PO TID PRN #20 capsule PRN Reason: Cough Ondansetron Odt [Zofran Odt] 4 mg PO Q8HR PRN #20 tab PRN Reason: Nausea And Vomiting Is patient prescribed a controlled substance at d/c from ED?: No Referrals: None,Stated [Primary Care Provider] - 1-2 days Time of Disposition: 07:54
[2023-09-06] MEDS: ONDANSETRON ODT 4 MG TAB PO STA (07:17)
--- NOTE | 2023-09-06 07:45 | XR ---
EXAMINATION TYPE: XR chest 2V DATE OF EXAM: 09/06/2023 COMPARISON: None HISTORY: 38-year-old female cough and chest pain TECHNIQUE: PA and lateral views FINDINGS: The cardiomediastinal silhouette, aorta, and pulmonary vasculature are within normal limits. Mild mari tral peribronchial cuffing. Otherwise, lungs and pleural spaces are clear. IMPRESSION: Some central peribronchial cuffing suggests bronchitis or asthma. No focal infiltrate.
[2023-09-06 08:14] VITALS: BP 134/96; PULSE 70; RESP 18; TEMP 98.3
== END 2023-09-06 08:03 | disposition home or self-care (01) ==
LOC: EC 06:17
DX: U07.1 COVID-19 (principal); Z88.5 Allergy status to narcotic agent
CPT/HCPCS: 71046; 87636; 99284